=== PATIENT | male | born 1950 | race Caucasian/White ===

== ENCOUNTER 2018-11-23 00:03 | Inpatient (IN) | payer OTHER ==
[~2018-11-23] VITALS: Ht 190.5 cm; Wt 117.9 kg
[2018-11-23] VITALS (13 sets, daily range): BP systolic 111–138; BP diastolic 57–81
[2018-11-23] MEDS ORDERED: GLUCOTROL10 MG PO (00:33)
[2018-11-23] MEDS ORDERED: JANUVIA100 MG PO (00:33)
[2018-11-23] MEDS ORDERED: CEPHALEXIN500 MG PO (00:34)
[2018-11-23] MEDS ORDERED: METFORMIN HCL500 MG PO (00:34)
[2018-11-23] MEDS ORDERED: PIOGLITAZONE15 MG PO (00:34)
[2018-11-23] MEDS ORDERED: LISINOPRIL40 MG PO (00:35)
[2018-11-23] MEDS ORDERED: LIPITOR40 MG PO (00:35)
[2018-11-23 00:38] LABS: ABSOLUTE NEUTROPHILS 3.2 thou/uL (1.4-8.2); BASOPHILS 0.7 % (0.0-2.0); EOSINOPHILS 4.8 % (0.0-3.0); HEMATOCRIT 43.9 % (42.0-52.0); HEMOGLOBIN 14.9 gm/dL (14.0-18.0); LYMPHOCYTES 35.4 % (24.0-44.0); MCH 31.8 pg (26.0-34.0); MCHC 33.8 g/dL (28.0-37.0); MCV 93.9 fL (80.0-100.0); MONOCYTES 10.1 % (1.0-8.0); PLATELET COUNT 254 thou/uL (150-400); RBC 4.68 mil/uL (4.50-6.00); RDW 13.8 % (10.5-14.5); WBC 6.5 thou/uL (4.0-11.0)
[2018-11-23 01:15] LABS: CALCIUM 9.4 mg/dL (8.5-10.1); CREATININE 1.1 mg/dL (0.7-1.3)
[2018-11-23 01:29] LABS: ALBUMIN 3.9 g/dL (3.4-5.0); TOTAL BILIRUBIN 0.5 mg/dL (<0.1-1.0); TOTAL PROTEIN 7.1 g/dL (6.4-8.2)
--- NOTE | 2018-11-23 02:38 | NUR ---
NICK AT BEDSIDE FOR EVAL, PT AMBULATED TO THE BATHROOM WITHOUT DIFFICULTY BUT HAVING SOME TROUBLE VOIDING. PREPARING TO GO TO ICU FOR ADMISSION.
--- NOTE | 2018-11-23 04:39 | NUR ---
PATIENT ADMITTED FROM ED DEPARTMENT COMPLAINING OF TOUNGE SWELLING. PATIENT STATED SIGNIFICANT DECREASE AFTER INTERVENTIONS IN ED DEPARTMENT. PATIENT ALERT AND ORIENTED X4, NO COMPLAINTS OF PAIN. ON ROOM AIR, O2 SAT REMAINS ABOVE 98%. UP WITH STANDBY ASSISTANCE. PLAN OF CARE DISCUSSED WITH PATIENT AND SPOUSE, BOTH VERBALIZED UNDERSTANDING. NO SIGNS OF DISCOMFORT OR RESPIRATORY DISTRESS AT THIS TIME. WILL CONTINUE TO MONITOR.
--- NOTE | 2018-11-23 06:40 | NUR ---
PATIENT BLOOD SUGAR INCREASED, PATIENT REFUSED INSULIN. STATED "I DON'T TAKE INSULIN EVER, I DON'T BELIVE IN TAKING INSULIN" PATIENT EDUCATED ON INSULIN CONTROL ALONG WITH IV STEROID USE. PATIENT REFUSED IV STEROID.
--- NOTE | 2018-11-23 08:13 | NUR ---
UPON ASSESSEMENT THIS MORNING PATIENT STATES HE WANTS TO GO HOME, DOES NOT WANT ANY INSULING FOR HIS HIGH BLOOD GLUCOSE LEVELS. DR. YATES PAGED AND INFORMATION RELAYED TO HIM. PER DR. YATES, IF PATIENT WANTS TO GO HOME BEFORE HE ROUNDS, HE CAN SIGN AMA PAPERWORK. I TALKED WITH PATIENT AND HIS SPOUSE AND COMMUNICATED THIS TO THEM, PATIENT STATES HE WILL WAIT FOR MD TO ROUND.
--- NOTE | 2018-11-23 09:00 | EKG ---
[address] [place] [address] ELECTROCARDIOGRAM REPORT Name: LISA HAMMONDS Room #: 239-P ADM IN M.R.#: [id number] ������������������ Admission: 11/23/18 ������������������ Attend Phys: Micky Goldman MD Discharge: ������������������ Date of : 48 Report #: [id number] ����������������������������������������������������������������� [id number] THIS REPORT FOR: //name// [facility] ED Test Date: 2018-11-23 Test Time: 00:12:56 Pat Name: LISA HAMMONDS Department: Room: 239 Gender: M Retail Coordinator: CICI : 1950 Requested By: Jake Harley Order Number: [id number] MD: Benny Chan Measurements Intervals [place] Rate: 80 P: 37 [place]: 155 QRS: 18 QRSD: 90 T: 81 QT: 417 QTc: 482 Interpretive Statements Sinus rhythm Abnormal R-wave progression, early transition Borderline ST depression, anterolateral leads Borderline prolonged QT interval No previous ECG available for comparison Electronically Signed On 11-23-2018 9:00:35 CDT by Benny Chan [email or web address] ��������������������������������������������� <ELECTRONICALLY SIGNED> ���������������������������������������� By: Benny Chan MD, [facility] ��������������������������������������������� 11/23/18 09 Benny Chan MD, [facility] /EPI
--- NOTE | 2018-11-23 09:35 | NUR ---
DR. YATES IN TO SEE PATIENT AND WILL BE DISCHARGING HOME
[2018-11-23] MEDS ORDERED: PREDNISONE 10 M10 M1 PO (09:48)
--- NOTE | 2018-11-23 11:33 | NUR ---
10:00 ORDERS RECEIVED TO DC PATIENT HOME. IV DC'D, NEW PRESCRIPTION AND DISCHARGE INSTRUCTIONS AND PAPERWORK GIVEN TO PATIENT AND SPOUSE AND NO QNS AT THIS TIME. PATIENT DISCHARGED AT 1015, ESCORTED TO EXIT BY RN TO SPOUSE'S CAR.
== END 2018-11-23 11:04 | disposition home or self-care (01) | DRG 916 ==
LOC: ER 00:03 → EROBS 02:32 → ICU 02:32
PROVIDERS: Emergency Medicine; ADMIT Hospitalist
DX: T78.3XXA Angioneurotic edema, initial encounter (principal); I10 Essential (primary) hypertension; E11.9 Type 2 diabetes mellitus without complications; E78.5 Hyperlipidemia, unspecified; Z88.0 Allergy status to penicillin; Z79.899 Other long term (current) drug therapy
CPT/HCPCS: 10078

== ENCOUNTER 2019-11-07 21:45 | Emergency (ER) | payer OTHER ==
[~2019-11-07] VITALS: Ht 190.5 cm; Wt 113.4 kg
[~2019-11-07 21:45] MED LIST: CEPHALEXIN500 MG PO; GLUCOTROL10 MG PO; JANUVIA100 MG PO; LIPITOR40 MG PO; LISINOPRIL40 MG PO; METFORMIN HCL500 MG PO; PIOGLITAZONE15 MG PO; PREDNISONE 10 M10 M1 PO
[2019-11-07] MEDS ORDERED: REPAGLINIDE2 MG PO (21:54)
[2019-11-07] MEDS ORDERED: PREDNISONE 20 M20 MG PO (23:17)
[2019-11-07 23:49] VITALS: BP 144/77
== END 2019-11-07 23:50 | disposition home or self-care (01) ==
LOC: ER 21:45
DX: T78.40XA Allergy, unspecified, initial encounter (principal); I10 Essential (primary) hypertension; E11.9 Type 2 diabetes mellitus without complications; E78.5 Hyperlipidemia, unspecified; Z79.84 Long term (current) use of oral hypoglycemic drugs; Z79.899 Other long term (current) drug therapy; Z88.0 Allergy status to penicillin; Z88.8 Allergy status to other drugs, medicaments and biological substances; Y92.89 Other specified places as the place of occurrence of the external cause